=== PATIENT | male | born 1970 | race Caucasian/White ===

== ENCOUNTER → 2016-11-28 | Outpatient (CLI) | payer OTHER ==
--- NOTE | 2016-11-29 02:14 | REP ---
Clinical: Jaw pain. Technique: PA, Turcios and Tejinder views of the skull. Findings: The osseous structures appear intact and normal. The sinuses are clear and without obvious mucoperiosteal changes or fluid levels. The surrounding soft tissues are grossly unremarkable. Impression: Normal visualized skull radiographs. Signed by Reece Campbell MD 11/29/2016 02:05 A
== END ==
LOC: M WUC 13:22
PROVIDERS: ATTEND Physician Assistant
DX: R68.84 Jaw pain (principal)

== ENCOUNTER 2019-11-11 11:02 | Inpatient (IN) | payer OTHER ==
[~2019-11-11] VITALS: Ht 175.3 cm; Wt 63.6 kg
[2019-11-11] MEDS ORDERED: CAFF200T PO (11:14)
[2019-11-11] MEDS ORDERED: MULTCAP PO (11:14)
[2019-11-11] MEDS ORDERED: NS 1,000 ML IV ONE (11:30)
[2019-11-11] MEDS: HYDROMORPHONE HCL 0.5 MG/ 0.5 ML SYRINGE (J1170 PER 1) IV PRN ×2 (11:50→13:16)
[2019-11-11 11:53] LABS: BASO # 0.1 10^3/uL (0.0-0.2); BASO % 0.9 % (0.0-1.0); EOS # 0.3 10^3/uL (0.0-0.5); EOS % 2.1 % (0.0-3.0); HEMATOCRIT 44.4 % (42.0-52.0); HEMOGLOBIN 15.4 g/dl (13.5-17.5); LYMPH # 1.7 10^3/uL (1.5-5.0); LYMPH % 12.7 % (24.0-44.0); MEAN CORPUSCULAR HGB CONC 34.7 g/dl (32.0-36.5); MEAN CORPUSCULAR VOLUME 89.3 fl (80.0-96.0); MONO # 0.9 10^3/uL (0.0-0.8); MONO % 6.7 % (0.0-5.0); NEUTROPHILS # 10.6 10^3/uL (1.5-8.5); NEUTROPHILS % 77.2 % (36.0-66.0); PLATELET COUNT, AUTOMATED 429 10^3/uL (150-450); RED BLOOD COUNT 4.97 10^6/uL (4.30-6.10); WHITE BLOOD COUNT 13.7 10^3/uL (4.0-10.0)
--- NOTE | 2019-11-11 11:57 | REP ---
Chest, single AP view with the patient supine: There are no comparisons. The lung purdy are hyperinflated. There are no infiltrates, pleural effusions, masses or nodules. Cardiac size is normal. The marvin, mediastinum, skeletal structures are unremarkable. Impression: Hyperinflation, otherwise negative supine AP chest. Electronically Signed by Ivan Muñoz MD 11/11/2019 11:48 A
--- NOTE | 2019-11-11 11:58 | REP ---
Right femur: A six views. History: Trauma. Findings: Multiple views of the right femur demonstrate a overriding obliquely oriented proximal femoral diaphyseal fracture. There is anterior override measuring approximately 12 cm. There is some clothing artifact. No distal femoral fracture is seen. No femoral neck fracture is observed. Impression: Proximal femoral diaphyseal fracture with significant anterior overriding. Electronically Signed by Corey Owen MD 11/11/2019 11:49 A
[2019-11-11 12:13] LABS: INR 1.09; PROTHROMBIN TIME 13.8 SECONDS (11.8-14.0)
[2019-11-11 12:14] LABS: PARTIAL THROMBOPLASTIN TIME 28.4 SECONDS (25.0-38.4)
[2019-11-11 12:24] LABS: ALBUMIN 3.7 GM/DL (3.2-5.2); ALT/SGPT 23 U/L (12-78); BILIRUBIN,DIRECT 0.2 MG/DL (0.0-0.2); BILIRUBIN,TOTAL 0.9 MG/DL (0.2-1.0); BLOOD UREA NITROGEN 21 MG/DL (7-18); CALCIUM LEVEL 8.9 MG/DL (8.5-10.1); CARBON DIOXIDE LEVEL 26 MEQ/L (21-32); CHLORIDE LEVEL 111 MEQ/L (98-107); CK-MB VALUE MASS 2.5 NG/ML (<3.6); CPK CREATINE PHOSPHOKINASE 125 U/L (39-308); CREATININE FOR GFR 0.82 MG/DL (0.70-1.30); GLOMERULAR FILTRATION RATE > 60.0 (>56); GLUCOSE, FASTING 116 MG/DL (70-100); LIPASE 101 U/L (73-393); POTASSIUM SERUM 3.8 MEQ/L (3.5-5.1); SODIUM LEVEL 141 MEQ/L (136-145); THYROID STIMULATING HORMONE 0.822 uIU/ML (0.358-3.740); TOTAL PROTEIN 7.1 GM/DL (6.4-8.2); TROPONIN I < 0.02 NG/ML (< 0.10)
--- NOTE | 2019-11-11 12:38 | HPEPDOC ---
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 Denies any past medical history. Denies any medical complaints. Patient states he has never experienced shortness of breath or chest pain. He is able to climb at least five flights of stairs without shortness of breath or chest pain, his limiting factor only being his acrophobia. He is a smoker, 1/2 ppd x 30 years. PAST MEDICAL HISTORY: Denies PAST SURGICAL HISTORY: Denies ALLERGIES: Please see below. REVIEW OF SYSTEMS: As per HPI. HOME MEDICATIONS: Please see below. PHYSICAL EXAMINATION: VITAL SIGNS: See below General : NAD, lying comfortably in bed HEENT: NC/AT, poor dentition Lungs: CTA B/L Heart: +S1S2, RRR Abd: soft, NT, +BS Ext: +pedal pulses LABORATORY DATA: See below. MICROBIOLOGY: Please see below. ASSESSMENT: 49 yo male for right hip fx after mechanical fall, denies any past medical history. #right hip fx - NPO/bedrest/IVF - ortho c/s pending - Patient is easily able to attain >4 METS of activity without any chest pain or shortness of breath. No acute findings on chest x-ray or ECG. He scores 0 points using the Revised Cardiac Risk Index for Pre-operative risk, as such is Class 1 Risk, with 3.9% 30-day risk of , TN, or cardiac arrest. #nicotine abuse - counselling provided at bedside, cessation assistance offered but refused; he feels this may be an opportunity for him to quit Dispo: Patient is medically optimized for planned orthopedic surgical intervention. Vital Signs Vital Signs Date Time Temp Pulse Resp B/P (MAP) Pulse Ox O2 Delivery O2 Flow Rate FiO2 11/11/19 12:19 18 11/11/19 11:18 98.1 82 131/79 (96) 99 Room Air Laboratory Data Labs 24H Laboratory Tests 2 11/11/19 11:41: Immature Granulocyte % (Auto) 0.4, Neutrophils (%) (Auto) 77.2H, Lymphocytes (%) (Auto) 12.7L, Monocytes (%) (Auto) 6.7H, Eosinophils (%) (Auto) 2.1, Basophils (%) (Auto) 0.9, Neutrophils # (Auto) 10.6H, Lymphocytes # (Auto) 1.7, Monocytes # (Auto) 0.9H, Eosinophils # (Auto) 0.3, Basophils # (Auto) 0.1, Nucleated Red Blood Cells % (auto) 0.0, Prothrombin Time 13.8, Prothromb Time International Ratio 1.09, Activated Partial Thromboplast Time 28.4, Anion Gap 4L, Glomerular Filtration Rate > 60.0, Calcium Level 8.9, Total Bilirubin 0.9, Direct Bilirubin 0.2, Aspartate Amino Transf (AST/SGOT) 15, Alanine Aminotransferase (ALT/SGPT) 23, Alkaline Phosphatase 88, Total Creatine Kinase 125, Creatine Kinase MB 2.5, Creatine Kinase MB Relative Index 2.00, Troponin I < 0.02, Total Protein 7.1, Albumin 3.7, Albumin/Globulin Ratio 1.09, Lipase 101, Thyroid Stimulating Hormone (TSH) 0.822 CBC/BMP Laboratory Tests 11/11/19 11:41 Home Medications Scheduled Caffeine (Caffeine) 200 Mg Tablet, 200 MG PO DAILY Multivitamin (Multivitamins) 1 Each Capsule, 1 CAP PO DAILY Scheduled PRN Albuterol Sulfate (Proair Hfa) 8.5 Gm Hfa.aer.ad, 2 PUFF INH QID PRN for SHORTNESS OF BREATH Tetrahydroz/Peg 400/Hyprom/Gly (Visine Max Redness Relief Drop) 15 Ml Drops, 1 DROP OU Q4H PRN for REDNESS/IRRITATION Allergies Coded Allergies: naproxen (Verified Adverse Reaction, Mild, UPSET STOMACH, 11/11/19) A-FIB/CHADSVASC A-FIB History Current/History of A-Fib/PAF?: ASTRID Dawson MD Nov 11, 2019 12:37
[2019-11-11] MEDS ORDERED: PROAAER10 INH (12:52)
[2019-11-11] MEDS ORDERED: VISISOL OU (12:52)
--- NOTE | 2019-11-11 13:02 | REP ---
AP pelvis: There is a subtrochanteric fracture of the femur . There is no dislocation. No pelvic fractures are identified. Mineralization is normal. The left hip is unremarkable. Impression: Subtrochanteric fracture of the right femur. Electronically Signed by Ivan Muñoz MD 11/11/2019 12:53 P
--- NOTE | 2019-11-11 13:20 | REP ---
RIGHT KNEE, TWO VIEWS: Two limited views of right knee performed. Only two views are obtained due to limited patient mobility. I see no evidence of acute fracture, dislocation, or intrinsic bone disease. Electronically Signed by Ivan Boyle MD 11/11/2019 04:00 P
[2019-11-11] MEDS ORDERED: ceFAZolin SOD 2 GM in IV 1 EA IV ONE (14:00)
[2019-11-11] MEDS ORDERED: MORPHINE 4 MG/ML 1ML VIAL/SYRINGE (J2270) IV ONE (15:00)
--- NOTE | 2019-11-11 15:32 | CR ---
DATE OF CONSULTATION: 11/11/2019 CHIEF COMPLAINT: Right leg pain. HISTORY: He presents today with right leg pain. Says he was washing his car in his sister's driveway when he had a slip and fall on ice and immediately appreciated 10/10 pain and inability to ambulate. The pain was made worse with range of motion or movement, alleviated only with immobilization and pain medication. He denies any pain elsewhere, any fever, chills, nausea or vomiting. A complete 10-system review was conducted. Pertinent positives and negatives in the history of present illness (HPI). All other systems negative. Past medical history of asthma. No current medications. Has a rescue inhaler, which he has not needed in years, NO KNOWN DRUG ALLERGIES. No past surgical history. Patient denies smoking. PHYSICAL EXAM: Patient is awake, alert, and oriented, well dressed, appropriate affect. Breathing unlabored on room air. Normocephalic, atraumatic. Bilateral upper extremity: No tenderness to palpation. Full active range of motion of the fingers, wrists, and elbows without any pain or discomfort. Skin is intact to light touch. Radial pulse 2+, regular rate. Sensation intact to light touch, superficial sensory branches of the radial nerve, median nerve, and ulnar nerve. Positive anterior interosseous nerve (AIN), and posterior interosseous nerve (PIN), and ulnar motor nerve functions. Left lower extremity: No tenderness to palpation. Negative log roll. Skin is intact. Posterior tibial pulse 2+, regular rate. Positive extensor hallucis longus (EHL), flexor hallucis longus (FHL), tibialis, gastroc motor function. Sensation intact to light touch in superficial, peroneal, deep peroneal, sural, saphenous, and tibial distributions. Right lower extremity: Deformity and swelling about the right thigh. Skin is intact. Posterior tibial pulse 2+, regular rate. Generalized tenderness to palpation throughout the thigh. Sensation intact to light touch in superficial, peroneal, deep peroneal, sural, saphenous, and tibial distributions. Imaging reviewed of pelvis, femur, and knee demonstrating oblique proximal third shaft fracture. I discussed with the patient that this is an unstable fracture and requires operative intervention. We discussed the risks and benefits of this including, but not limited to, infection, damage to surrounding structures, incomplete relief, malunion, nonunion. Patient wished to proceed. He is admitted under the hospitalist service. He is currently nothing by mouth. The last time he ate or drank; eat last night, drank this morning at 8 a.m. He is bedrest currently. Patient expressed understanding and consented to surgery. We will work on getting the surgery done today. GLORIA
[2019-11-11] MEDS ORDERED: propofoL 200 MG/20 ML VIAL As Ordered ONE (16:14)
[2019-11-11] MEDS ORDERED: ROCURONIUM BROMIDE 50 MG/5 ML VIAL As Ordered ONE (16:14)
[2019-11-11] MEDS ORDERED: LIDOCAINE 2% INJ 100 MG/5 ML SDV (FOR ANES.) As Ordered ONE (16:14)
[2019-11-11] MEDS ORDERED: MIDAZOLAM INJ 2 MG/2 ML VIAL (J2250) As Ordered ONE (16:14)
[2019-11-11] MEDS ORDERED: fentaNYL 250 MCG/5 ML INJECTION (J3010) As Ordered ONE (16:14)
[2019-11-11] MEDS ORDERED: ceFAZolin 2 GM/D5W 50 ML IV BAG (J0690 PER 500MG) As Ordered ONE (16:26)
[2019-11-11] MEDS ORDERED: ONDANSETRON 4MG/2ML VIAL (J2405) As Ordered ONE (16:57)
[2019-11-11] MEDS ORDERED: METOCLOPRAMIDE INJ 10MG/2ML VIAL (J2765) As Ordered ONE (16:57)
[2019-11-11] MEDS ORDERED: GLYCOPYRROLATE INJ 0.2 MG/ML 2 ML VIAL As Ordered ONE (17:02)
[2019-11-11] MEDS ORDERED: NEOSTIGMINE 10 MG/10 ML VIAL (J2710) As Ordered ONE (17:02)
[2019-11-11] MEDS ORDERED: HYDROmorphone HCL 2 MG/ML 1ML VIAL (J1170) As Ordered ONE (17:07)
[2019-11-11] MEDS ORDERED: ACETAMINOPHEN 1000MG 100ML IV BTL (OFIRMEV) (J0131 PER 10MG) As Ordered ONE (17:09)
[2019-11-11] MEDS ORDERED: LR 1,000 ML IV SCH (18:45)
[2019-11-11] MEDS ORDERED: PERCOCET 5MG/325MG TAB PO PRN (18:45)
[2019-11-11] MEDS ORDERED: fentaNYL 100 MCG/2 ML INJECTION (J3010) IV PRN (18:45)
[2019-11-11] MEDS ORDERED: METOCLOPRAMIDE INJ 10MG/2ML VIAL (J2765) IV PRN (18:45)
[2019-11-11] MEDS ORDERED: ONDANSETRON 4MG/2ML VIAL (J2405) IV PRN (18:45)
[2019-11-11] MEDS ORDERED: ONDANSETRON 4MG/2ML VIAL (J2405) IM PRN (19:00)
[2019-11-11] MEDS ORDERED: NS 1,000 ML IV SCH (19:00)
[2019-11-11] MEDS ORDERED: oxyCODONE 5MG TAB PO PRN (19:00)
[2019-11-11] MEDS ORDERED: ACETAMINOPHEN TAB 650MG DOSE (2X325MG) PO PRN (19:00)
[2019-11-11] MEDS ORDERED: FLEET ENEMA PR PRN (19:00)
--- NOTE | 2019-11-11 19:10 | REP ---
Right femur: Eight views. History: Intraoperative imaging. Comparison right femur radiographs are from earlier on this date. Findings: Eight views of the right femur document intramedullary chas fixation of a subtrochanteric femoral diaphyseal fracture anatomically aligned. 2 minutes 14 seconds of fluoroscopy time is reported. Electronically Signed by Corey Owen MD 11/11/2019 07:16 P
--- NOTE | 2019-11-11 19:19 | RO ---
DATE OF PROCEDURE: 11/11/2019 PREPROCEDURE DIAGNOSIS: Right femoral shaft fracture with extension into intertrochanteric region. POSTPROCEDURE DIAGNOSIS: Right femoral shaft fracture with extension into intertrochanteric region. PROCEDURE: Right intramedullary nailing of femoral shaft fracture. SURGEON: Parker Rebollar MD LIGHT BULB ASSEMBLER: None. ANESTHESIA: General. PREOPERATIVE ANTIBIOTICS: 2 grams of Ancef. COMPLICATIONS: None. BLOOD LOSS: 200 mL. INDICATIONS: This is a 49-year-old male who suffered a slip and fall and suffered an unstable femoral shaft injury. We discussed the need for operative intervention in order to increase his ambulation and pain control. We discussed the risks, including, but not limited to infection, damage to surrounding structures, incomplete relief, malunion, nonunion, patient wished to proceed. DESCRIPTION OF PROCEDURE: The patient was brought back to the operating room (OR) in a supine position, underwent general anesthesia, and then was placed on the fracture table. We then had a time-out confirming site, side, and surgery, applied traction. We were able to get reasonable reduction at this point. We then prepped and draped the right leg in the usual fashion. We localized the greater trochanter along with the proximal and distal extent of the fracture. We then made a longitudinal incision mid thigh and in line with the fracture, controlled superficial bleeding and entered the iliotibial (IT) band in line with the fibers and then did a subvastus approach to the proximal femur at where the fracture plane was. We then used a combination of direct and indirect means to reduce the fracture using two large lobster claws, at which point we passed two cerclage wires around the fracture to maintain our reduction. These were cinched down and locked into place, confirmed on AP and lateral that we had adequate reduction. We then made our proximal incision in line with the greater trochanter. I obtained our start point on the AP and lateral. We then used the entry reamer and passed a guidewire down to the knee, measured a 400 mm nail, at which point we sequentially reamed up to a 12-1/2 and inserted a 125-degree TFN 11 mm nail. We then removed the guidewire and inserted the K-wire for the helical blade. Once we confirmed center-center position on both AP and lateral, we measured a 95 helical blade, drilled, and then inserted the helical blade and locked it fully into place. This was confirmed on both AP and lateral. We then turned our attention distally and used perfect barrow technique to do two interlocking screws distally. Once this was complete, we confirmed on AP and lateral both our hardware and our fracture fixation and reduction, and we were happy with both. We irrigated the wounds thoroughly. We closed the IT band with #0 Vicryl, subcutaneous tissue with #2-0 Vicryl and skin christianne for all wounds, and then placed gauze and Tegaderm over top. The patient was then awakened and taken to the post-anesthesia care unit (PACU) in stable condition. POSTOPERATIVE PLAN: The patient will be weightbearing as tolerated, get Surgical Care Improvement Project (SCIP) antibiotic prophylaxis along with deep vein thrombosis (DVT) prophylaxis for approximately 6 weeks. He will be discharged once his pain and ambulation is under control. Will see him at 2 weeks for a repeat clinical check at that time.
[2019-11-11 19:44] VITALS: BP 108/74
[2019-11-11 20:30] VITALS: BP 105/72
[2019-11-11 21:15] VITALS: BP 103/67
[2019-11-11] MEDS: oxyCODONE 5MG TAB PO PRN (21:29)
--- NOTE | 2019-11-11 21:35 | ECGEPIP ---
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
[2019-11-11 22:15] VITALS: BP 106/76
[2019-11-12] MEDS: ceFAZolin SOD 1 GM in D5W MINI-BAG PLUS 50 ML IV SCH ×3 (01:08→16:32)
[2019-11-12] MEDS: MORPHINE 2 MG/ML 1ML VIAL (J2270) IV PRN ×2 (01:08→03:09)
[2019-11-12] MEDS: oxyCODONE 5MG TAB PO PRN ×3 (02:02→12:54)
[2019-11-12 05:57] VITALS: BP 110/65
[2019-11-12 06:44] LABS: BASO # 0.1 10^3/uL (0.0-0.2); BASO % 0.8 % (0.0-1.0); EOS # 0.1 10^3/uL (0.0-0.5); EOS % 1.2 % (0.0-3.0); HEMATOCRIT 33.9 % (42.0-52.0); LYMPH # 1.6 10^3/uL (1.5-5.0); LYMPH % 17.6 % (24.0-44.0); MEAN CORPUSCULAR HGB CONC 34.5 g/dl (32.0-36.5); MEAN CORPUSCULAR VOLUME 89.9 fl (80.0-96.0); MONO # 1.4 10^3/uL (0.0-0.8); MONO % 15.3 % (0.0-5.0); NEUTROPHILS % 64.7 % (36.0-66.0); RED BLOOD COUNT 3.77 10^6/uL (4.30-6.10); WHITE BLOOD COUNT 9.3 10^3/uL (4.0-10.0)
[2019-11-12 06:46] LABS: HEMOGLOBIN 11.7 g/dl (13.5-17.5); PLATELET COUNT, AUTOMATED 288 10^3/uL (150-450)
[2019-11-12 07:01] LABS: ALBUMIN 2.9 GM/DL (3.2-5.2); ALT/SGPT 20 U/L (12-78); BILIRUBIN,TOTAL 2.1 MG/DL (0.2-1.0); BLOOD UREA NITROGEN 17 MG/DL (7-18); CALCIUM LEVEL 7.9 MG/DL (8.5-10.1); CARBON DIOXIDE LEVEL 23 MEQ/L (21-32); CHLORIDE LEVEL 112 MEQ/L (98-107); CHOLESTEROL LEVEL 106 MG/DL (<200); CHOLESTEROL RISK RATIO 3.655 (<5); CREATININE FOR GFR 0.81 MG/DL (0.70-1.30); GLOMERULAR FILTRATION RATE > 60.0 (>56); GLUCOSE, FASTING 112 MG/DL (70-100); HDL CHOLESTEROL 29 MG/DL (>40); LDL CHOLESTEROL 61 MG/DL (<100); NON-HDL-C 77 MG/DL; POTASSIUM SERUM 4.4 MEQ/L (3.5-5.1); SODIUM LEVEL 141 MEQ/L (136-145); TOTAL PROTEIN 5.6 GM/DL (6.4-8.2); TRIGLYCERIDES LEVEL 81 MG/DL (<150)
[2019-11-12 08:03] LABS: HEMOGLOBIN A1c 5.8 %
[2019-11-12] MEDS: CYCLOBENZAPRINE 10 MG TAB PO SCH ×3 (08:38→20:29)
[2019-11-12] MEDS: MORPHINE 15 MG SA TAB PO SCH ×2 (08:38→20:29)
[2019-11-12] MEDS: MOM 30ML SUSPENSION UDC PO SCH (08:38)
[2019-11-12] MEDS: MIRALAX *UNIT DOSE* 17GM PACKET PO SCH (08:38)
[2019-11-12] MEDS ORDERED: ENOXAPARIN 40 MG/0.4 ML SYRINGE (J1650) SC SCH (09:00)
[2019-11-12 10:00] VITALS: BP 108/65
--- NOTE | 2019-11-12 11:25 | IPNPDOC ---
Date Seen The patient was seen on 11/12/19. Progress Note SUBJECTIVE: Patient was seen and examined this morning. He states he has a large amount of pain in his R leg and that he has a "sore throat" that is making eating difficult. Otherwise no events overnight and he denies chest pain, shortness of breath, fevers, chills, nausea and vomiting. OBJECTIVE PHYSICAL EXAMINATION: VITAL SIGNS: Please see below. GENERAL: Pleasant 49 year old male lying in bed in no acute distress. HEENT: Atraumatic, normocephalic, moist mucus membranes. CARDIOVASCULAR: Normal S1, S2 regular rate and rhythm with no murmurs, gallops or rubs RESPIRATORY: Clear to auscultation bilaterally with no wheezes, rhonchi or rales ABDOMINAL: Bowel sounds present in all 4 quadrants, abdomen soft and nontender EXTREMITIES: Surgical site on R leg shows no erythema or discharge. R foot is cold to touch. NEUROLOGICAL: AOx3, no gross focal deficits PSYCHOLOGICAL: Appropriate. LABORATORY DATA, MICROBIOLOGY: Please see below. IMAGING STUDIES: No new imaging. DVT prophylaxis: Xarelto 10 mg PO daily. ASSESSMENT AND PLAN: This is a 49 year old male with a R hip fracture after a mechanical fall s/p surgery 1 day. PROBLEMS: 1. R hip fracture -Ortho consulted and surgery performed yesterday. -Postoperative plan per ortho: weightbearing as tolerated, antibiotic prophylaxis and DVT prophylaxis for 6 weeks, discharge once pain and ambulation are under control. -cefazolin 1 gm Q8H -continue pain meds 2. Nicotine Abuse -counseled bedside, patient refused assistance. DISPOSITION: Pending pain and ambulation control. Attending: Patient seen and examined independently. Agree with resident's note. VS, I&O, 24H, Fishbone Vital Signs/I&O Vital Signs Date Time Temp Pulse Resp B/P (MAP) Pulse Ox O2 Delivery O2 Flow Rate FiO2 11/12/19 08:38 18 Room Air 11/12/19 05:57 99.3 98 110/65 (80) 98 I&O- Last 24 Hours up to 6 AM 11/12/19 06:00 Intake Total 3190 ml Output Total 475 ml Balance 2715 ml Laboratory Data 24H LABS Laboratory Tests 2 11/11/19 11:41: Immature Granulocyte % (Auto) 0.4, Neutrophils (%) (Auto) 77.2H, Lymphocytes (%) (Auto) 12.7L, Monocytes (%) (Auto) 6.7H, Eosinophils (%) (Auto) 2.1, Basophils (%) (Auto) 0.9, Neutrophils # (Auto) 10.6H, Lymphocytes # (Auto) 1.7, Monocytes # (Auto) 0.9H, Eosinophils # (Auto) 0.3, Basophils # (Auto) 0.1, Nucleated Red Blood Cells % (auto) 0.0, Prothrombin Time 13.8, Prothromb Time International Ratio 1.09, Activated Partial Thromboplast Time 28.4, Anion Gap 4L, Glomerular Filtration Rate > 60.0, Calcium Level 8.9, Total Bilirubin 0.9, Direct Bilirubin 0.2, Aspartate Amino Transf (AST/SGOT) 15, Alanine Aminotransferase (ALT/SGPT) 23, Alkaline Phosphatase 88, Total Creatine Kinase 125, Creatine Kinase MB 2.5, Creatine Kinase MB Relative Index 2.00, Troponin I < 0.02, Total Protein 7.1, Albumin 3.7, Albumin/Globulin Ratio 1.09, Lipase 101, Thyroid Stimulating Hormone (TSH) 0.822 11/12/19 06:26: Immature Granulocyte % (Auto) 0.4, Neutrophils (%) (Auto) 64.7, Lymphocytes (%) (Auto) 17.6L, Monocytes (%) (Auto) 15.3H, Eosinophils (%) (Auto) 1.2, Basophils (%) (Auto) 0.8, Neutrophils # (Auto) 6.0, Lymphocytes # (Auto) 1.6, Monocytes # (Auto) 1.4H, Eosinophils # (Auto) 0.1, Basophils # (Auto) 0.1, Nucleated Red Blood Cells % (auto) 0.0, Anion Gap 6L, Glomerular Filtration Rate > 60.0, Calcium Level 7.9L, Total Bilirubin 2.1#H, Aspartate Amino Transf (AST/SGOT) 36, Alanine Aminotransferase (ALT/SGPT) 20, Alkaline Phosphatase 73, Total Protein 5.6#L, Albumin 2.9#L, Albumin/Globulin Ratio 1.07, Estimated Mean Plasma Glucose 120H, Hemoglobin A1c 5.8, Triglycerides Level 81, Total Cholesterol 106, LDL Cholesterol 61, Non-HDL Cholesterol (LDL + VLDL) 77, Total HDL Cholesterol 29L, Cholesterol/HDL Ratio 3.655 CBC/BMP Laboratory Tests 11/11/19 11:41 11/12/19 06:26 RITU PETERS OMS-3 Nov 12, 2019 11:24 ASTRID TELLES MD Nov 18, 2019 23:26
[2019-11-12] MEDS ORDERED: ONDANSETRON 4MG/2ML VIAL (J2405) IV PRN (12:45)
[2019-11-12 14:00] VITALS: BP 114/78
[2019-11-12 18:00] VITALS: BP 114/66
[2019-11-12] MEDS: RIVAROXABAN 10 MG TAB (XARELTO) PO SCH (18:29)
[2019-11-12 22:00] VITALS: BP 111/67
[2019-11-13 02:00] VITALS: BP 113/69
[2019-11-13 06:00] VITALS: BP 113/70
[2019-11-13 07:22] LABS: HEMATOCRIT 30.2 % (42.0-52.0); HEMOGLOBIN 10.4 g/dl (13.5-17.5); MEAN CORPUSCULAR HEMOGLOBIN 31.2 pg (27.0-33.0); MEAN CORPUSCULAR HGB CONC 34.4 g/dl (32.0-36.5); MEAN CORPUSCULAR VOLUME 90.7 fl (80.0-96.0); PLATELET COUNT, AUTOMATED 278 10^3/uL (150-450); RED BLOOD COUNT 3.33 10^6/uL (4.30-6.10); WHITE BLOOD COUNT 9.6 10^3/uL (4.0-10.0)
[2019-11-13 07:53] LABS: ALBUMIN 2.7 GM/DL (3.2-5.2); ALT/SGPT 19 U/L (12-78); BILIRUBIN,TOTAL 1.8 MG/DL (0.2-1.0); BLOOD UREA NITROGEN 13 MG/DL (7-18); CALCIUM LEVEL 8.4 MG/DL (8.5-10.1); CARBON DIOXIDE LEVEL 27 MEQ/L (21-32); CHLORIDE LEVEL 105 MEQ/L (98-107); CREATININE FOR GFR 0.67 MG/DL (0.70-1.30); GLOMERULAR FILTRATION RATE > 60.0 (>56); GLUCOSE, FASTING 108 MG/DL (70-100); POTASSIUM SERUM 3.8 MEQ/L (3.5-5.1); SODIUM LEVEL 135 MEQ/L (136-145); TOTAL PROTEIN 5.8 GM/DL (6.4-8.2)
[2019-11-13] MEDS: CYCLOBENZAPRINE 10 MG TAB PO SCH ×3 (08:38→20:04)
[2019-11-13] MEDS: MORPHINE 15 MG SA TAB PO SCH ×2 (08:39→20:05)
[2019-11-13] MEDS: MIRALAX *UNIT DOSE* 17GM PACKET PO SCH (08:39)
[2019-11-13] MEDS: MOM 30ML SUSPENSION UDC PO SCH (08:39)
[2019-11-13 14:00] VITALS: BP 109/69
--- NOTE | 2019-11-13 14:32 | IPNPDOC ---
Subjective Date Seen The patient was seen on 11/13/19. Subjective Chief Complaint/HPI Doing fine c/o cough but no worse than before surgery. Pain control. Objective Physical Examination General Exam: Positive: Alert, No Acute Distress Eye Exam: Positive: PERRLA, Conjunctiva & lids normal; Negative: Sclera icteric ENT Exam: Positive: Atraumatic Neck Exam: Positive: Supple; Negative: JVD, thyromegaly Chest Exam: Positive: Clear to auscultation, Normal air movement Heart Exam: Positive: Rate Normal, Regular Rhythm, Normal S1, Normal S2; Negative: Murmurs, Rubs Telemetry: Positive: No significant arrhythmia Abdomen Exam: Positive: Normal bowel sounds, Soft; Negative: Tenderness, Hepatospenomegaly Extremity Exam: Positive: Normal pulses; Negative: Clubbing, Cyanosis, Edema Skin Exam: Positive: Nl turgor and temperature; Negative: Rash, Breakdown Neuro Exam: Positive: Normal Speech Psych Exam: Positive: Mental status NL, Mood NL, Oriented x 3 Assessment /Plan Assessment # Right hip fracture # post-op ncnc anemia - POD # 2 s/p nailing - PT/OT awaiting eval for possible placement vs home - xarelto - monitor cbc # Nicotine Abuse -counseled bedside, patient refused assistance. Plan/VTE VTE Prophylaxis Ordered?: Yes VTE Exclusion Mechanical Proph: N/A:VTE Prophy Ordered VTE Exclusion Pharmacological: N/A:VTE Prophy Ordered (xarelto) VS, I&O, 24H, Fishbone Vital Signs/I&O Vital Signs Date Time Temp Pulse Resp B/P (MAP) Pulse Ox O2 Delivery O2 Flow Rate FiO2 11/13/19 11:30 18 Room Air 11/13/19 06:00 99.0 86 113/70 (84) 99 I&O- Last 24 Hours up to 6 AM 11/13/19 06:00 Intake Total 2150 ml Output Total 1230 ml Balance 920 ml Laboratory Data 24H LABS Laboratory Tests 2 11/13/19 07:01: Nucleated Red Blood Cells % (auto) 0.0, Anion Gap 3L, Glomerular Filtration Rate > 60.0, Calcium Level 8.4L, Total Bilirubin 1.8H, Aspartate Amino Transf (AST/SGOT) 35, Alanine Aminotransferase (ALT/SGPT) 19, Alkaline Phosphatase 67, Total Protein 5.8L, Albumin 2.7L, Albumin/Globulin Ratio 0.87L CBC/BMP Laboratory Tests 11/13/19 07:01 ALTA GIBBS MD Nov 13, 2019 14:24
[2019-11-13] MEDS: RIVAROXABAN 10 MG TAB (XARELTO) PO SCH (16:56)
[2019-11-13 21:49] VITALS: BP 102/65
[2019-11-14 06:30] VITALS: BP 105/66
[2019-11-14 06:54] LABS: HEMATOCRIT 27.6 % (42.0-52.0); HEMOGLOBIN 9.4 g/dl (13.5-17.5); MEAN CORPUSCULAR HEMOGLOBIN 30.9 pg (27.0-33.0); MEAN CORPUSCULAR HGB CONC 34.1 g/dl (32.0-36.5); MEAN CORPUSCULAR VOLUME 90.8 fl (80.0-96.0); PLATELET COUNT, AUTOMATED 276 10^3/uL (150-450); RED BLOOD COUNT 3.04 10^6/uL (4.30-6.10); WHITE BLOOD COUNT 7.9 10^3/uL (4.0-10.0)
[2019-11-14] MEDS: CYCLOBENZAPRINE 10 MG TAB PO SCH ×3 (08:52→21:25)
[2019-11-14] MEDS: MOM 30ML SUSPENSION UDC PO SCH (08:52)
[2019-11-14] MEDS: MORPHINE 15 MG SA TAB PO SCH ×2 (08:53→21:26)
[2019-11-14] MEDS: MIRALAX *UNIT DOSE* 17GM PACKET PO SCH (08:54)
[2019-11-14 14:00] VITALS: BP 104/66
--- NOTE | 2019-11-14 15:51 | IPNPDOC ---
Subjective Date Seen The patient was seen on 11/14/19. Subjective Chief Complaint/HPI C/o pain while walking in [place]. Objective Physical Examination General Exam: Positive: Alert, No Acute Distress Eye Exam: Positive: PERRLA; Negative: Sclera icteric ENT Exam: Positive: Atraumatic Neck Exam: Positive: Supple; Negative: JVD, thyromegaly Chest Exam: Positive: Clear to auscultation Heart Exam: Positive: Rate Normal, Regular Rhythm, Normal S1, Normal S2; Negative: Murmurs, Rubs Abdomen Exam: Positive: Normal bowel sounds, Soft; Negative: Tenderness, Hepatospenomegaly Extremity Exam: Positive: Normal pulses; Negative: Clubbing, Cyanosis, Edema Skin Exam: Positive: Nl turgor and temperature; Negative: Rash, Breakdown Neuro Exam: Positive: Normal Speech Psych Exam: Positive: Mental status NL, Oriented x 3 Assessment /Plan Assessment # Right hip fracture # post-op ncnc anemia - POD # 3 s/p nailing - PT/OT awaiting eval for possible placement vs home - Xarelto - monitor cbc - no TX indicated at this time # Nicotine Abuse -counseled bedside, patient refused assistance. Plan/VTE VTE Prophylaxis Ordered?: Yes VTE Exclusion Mechanical Proph: N/A:VTE Prophy Ordered VTE Exclusion Pharmacological: N/A:VTE Prophy Ordered (xarelto) VS, I&O, 24H, Fishbone Vital Signs/I&O Vital Signs Date Time Temp Pulse Resp B/P (MAP) Pulse Ox O2 Delivery O2 Flow Rate FiO2 11/14/19 08:53 18 11/14/19 06:30 98.4 98 105/66 (79) 99 Room Air I&O- Last 24 Hours up to 6 AM 11/14/19 06:00 Intake Total 1180 ml Output Total 0 ml Balance 1180 ml Laboratory Data 24H LABS Laboratory Tests 2 11/14/19 06:36: Nucleated Red Blood Cells % (auto) 0.0 CBC/BMP Laboratory Tests 11/14/19 06:36 ALTA GIBBS MD Nov 14, 2019 15:51
[2019-11-14] MEDS: RIVAROXABAN 10 MG TAB (XARELTO) PO SCH (16:52)
[2019-11-14 22:00] VITALS: BP 102/66
[2019-11-15 06:00] VITALS: BP 101/66
[2019-11-15] MEDS ORDERED: XARE10TA PO (06:40)
[2019-11-15] MEDS ORDERED: OXYC-517 PO (06:40)
[2019-11-15] MEDS ORDERED: CYCL10TA PO (06:40)
[2019-11-15] MEDS: CYCLOBENZAPRINE 10 MG TAB PO SCH ×3 (08:05→20:48)
[2019-11-15] MEDS: MORPHINE 15 MG SA TAB PO SCH ×2 (08:06→20:49)
[2019-11-15] MEDS: MOM 30ML SUSPENSION UDC PO SCH (08:06)
[2019-11-15] MEDS: MIRALAX *UNIT DOSE* 17GM PACKET PO SCH (08:06)
--- NOTE | 2019-11-15 11:06 | IPNPDOC ---
Subjective Date Seen The patient was seen on 11/15/19. Subjective Chief Complaint/HPI Feels well. No active problems, getting around better. Objective Physical Examination General Exam: Positive: Alert Eye Exam: Positive: PERRLA, EOMI; Negative: Sclera icteric ENT Exam: Positive: Atraumatic Neck Exam: Positive: Supple; Negative: JVD, thyromegaly Chest Exam: Positive: Clear to auscultation Heart Exam: Positive: Regular Rhythm, Normal S1, Normal S2; Negative: Murmurs, Rubs Abdomen Exam: Positive: Normal bowel sounds, Soft; Negative: Tenderness, Hepatospenomegaly Extremity Exam: Positive: Normal pulses; Negative: Clubbing, Cyanosis, Edema Skin Exam: Positive: Nl turgor and temperature; Negative: Rash, Breakdown Neuro Exam: Positive: Normal Speech Psych Exam: Positive: Mental status NL, Oriented x 3 Assessment /Plan Assessment # Right hip fracture # post-op ncnc anemia - s/p nailing - PT/OT awaiting eval for possible placement vs home - Xarelto - monitor cbc - no TX indicated at this time - home today with HH # Nicotine Abuse -counseled bedside, patient refused assistance. Plan/VTE VTE Prophylaxis Ordered?: Yes VTE Exclusion Mechanical Proph: N/A:VTE Prophy Ordered VTE Exclusion Pharmacological: N/A:VTE Prophy Ordered (xarelto) VS, I&O, 24H, Fishbone Vital Signs/I&O Vital Signs Date Time Temp Pulse Resp B/P (MAP) Pulse Ox O2 Delivery O2 Flow Rate FiO2 11/15/19 08:06 18 11/15/19 06:00 98.9 101 101/66 (78) 97 Room Air I&O- Last 24 Hours up to 6 AM 11/15/19 06:00 Intake Total 1690 ml Output Total 200 ml Balance 1490 ml ALTA GIBBS MD Nov 15, 2019 11:06
[2019-11-15 14:00] VITALS: BP 105/66
[2019-11-15] MEDS: RIVAROXABAN 10 MG TAB (XARELTO) PO SCH (16:42)
[2019-11-15 21:34] VITALS: BP 102/66
[2019-11-16 06:27] VITALS: BP 102/69
[2019-11-16] MEDS: MOM 30ML SUSPENSION UDC PO SCH (09:00)
[2019-11-16] MEDS: MIRALAX *UNIT DOSE* 17GM PACKET PO SCH (09:00)
[2019-11-16] MEDS: CYCLOBENZAPRINE 10 MG TAB PO SCH (09:30)
[2019-11-16] MEDS: MORPHINE 15 MG SA TAB PO SCH (09:30)
--- NOTE | 2019-11-16 09:58 | IPNPDOC ---
Subjective Date Seen The patient was seen on 11/16/19. Subjective Chief Complaint/HPI Stable Objective Physical Examination General Exam: Positive: Alert Eye Exam: Positive: PERRLA, EOMI; Negative: Sclera icteric ENT Exam: Positive: Atraumatic Neck Exam: Positive: Supple; Negative: JVD, thyromegaly Chest Exam: Positive: Clear to auscultation Heart Exam: Positive: Regular Rhythm, Normal S1, Normal S2; Negative: Murmurs, Rubs Abdomen Exam: Positive: Normal bowel sounds, Soft; Negative: Tenderness, Hepatospenomegaly Extremity Exam: Positive: Normal pulses; Negative: Clubbing, Cyanosis, Edema Skin Exam: Positive: Nl turgor and temperature; Negative: Rash, Breakdown Neuro Exam: Positive: Normal Speech Psych Exam: Positive: Mental status NL, Oriented x 3 Assessment /Plan Assessment # Right hip fracture # post-op ncnc anemia - s/p nailing - Xarelto - monitor cbc - home today with HH - f/u with PCP and ortho as outpatient # Nicotine Abuse -counseled bedside, patient refused assistance. Plan/VTE VTE Prophylaxis Ordered?: Yes VTE Exclusion Mechanical Proph: N/A:VTE Prophy Ordered VTE Exclusion Pharmacological: N/A:VTE Prophy Ordered (xarelto) VS, I&O, 24H, Fishbone Vital Signs/I&O Vital Signs Date Time Temp Pulse Resp B/P (MAP) Pulse Ox O2 Delivery O2 Flow Rate FiO2 11/16/19 09:30 18 Room Air 11/16/19 06:27 99.9 116 102/69 (80) 97 I&O- Last 24 Hours up to 6 AM 11/16/19 06:00 Intake Total 1840 ml Output Total 600 ml Balance 1240 ml ALTA GIBBS MD Nov 16, 2019 09:58
--- NOTE | 2019-11-18 12:20 | DSES ---
DATE OF ADMISSION: 11/11/2019 DATE OF DISCHARGE: 11/16/2019 DISCHARGE DIAGNOSES: 1. Status post mechanical fall with traumatic right hip fracture. 2. Status post intramedullary nailing of right hip fracture. 3. Postop normocytic, normochromic anemia. 4. Nicotine abuse. PROCEDURES PERFORMED DURING THIS HOSPITALIZATION: Right intertrochanteric medullary nailing. CONSULTANTS ON THE CASE: Orthopaedic service. DISPOSITION: Patient is discharged home with home health. DISCHARGE INSTRUCTIONS: Patient is instructed to follow with his primary care provider (PCP). He is to followup with orthopaedics as outline in the discharge paperwork. CONDITION ON DISCHARGE: Stable. DISCHARGE MEDICATIONS: - Flexeril 10 mg one tablet three times a day for 5 days - oxycodone 5 mg one to two tablets by mouth every 4 hours as needed for pain dispensed 30 tablets. - Xarelto 10 mg by mouth daily for 30 days - ProAir two puffs four times a day as needed for shortness of breath - Caffeine 200 mg daily - multivitamin one capsule daily - Visine eye drops one drop OU every 4 hours as needed for redness and irritation. White blood cell count 7.9, hemoglobin 9.4, hematocrit 27.6, platelet count 276. Sodium 135, potassium 3.8, chloride 105, bicarbonate 27, BUN 13, creatinine 0.67, glucose 108, calcium 8.4. Total bilirubin 1 .8, AST 35, ALT 19, albumin 2.7, TSH 0.82, lipase 102, cholesterol 106, LDL 61, Non-LDL 77, total HDL cholesterol 29. IMAGING STUDIES: X-ray of the femur showed a proximal femoral diaphyseal fracture with significant anterior overriding. HOSPITAL COURSE: Mr. Woodward is a 49-year-old male who is a smoker who presented to the hospital after suffering a fall on the ice and developing acute pain on his right side. He was diagnosed as having a right femoral shaft fracture with extension into the intertrochanteric region. He was admitted to the hospitalist service. He was subsequently cleared for surgery. He was taken to the operative theater by Dr. Rebollar and he underwent right intramedullary nailing of the femoral shaft fracture. His postoperative course was uncomplicated with the exception of his pain and mobility. It took him several days for him to improve in regards to these issues. He was evaluated for possible placement, however, his insurance declined him and he was subsequently cleared by physical therapy (PT) and occupational therapy (OT) to go home with home health. He was discharged home in stable condition. A total of 30 minutes spent completing all discharge paperwork.
== END 2019-11-16 13:00 | disposition home health service (06) | DRG 308 ==
LOC: EDBD 11:02 → M ED 11:02 → M ED INP 12:35 → ENRESERVTM 18:56 → ENRESERVDT 18:56 → M MS5PR 19:35
PROVIDERS: ADMIT Internal Medicine; ATTEND Internal Medicine
PROC: 0QS606Z Reposition Right Upper Femur with Intramedullary Internal Fixation Device, Open Approach (ICD-10-PCS; principal; 2019-11-11 15:00)
DX: S72.331A Displaced oblique fracture of shaft of right femur, initial encounter for closed fracture (principal); W00.0XXA Fall on same level due to ice and snow, initial encounter; F17.200 Nicotine dependence, unspecified, uncomplicated; D64.9 Anemia, unspecified; Y93.89 Activity, other specified; Y92.014 Private driveway to single-family (private) house as the place of occurrence of the external cause; Z88.6 Allergy status to analgesic agent; Y99.8 Other external cause status

== ENCOUNTER 2024-01-08 08:52 | Emergency (ER) | payer OTHER ==
[~2024-01-08] VITALS: Ht 175.3 cm; Wt 63.6 kg
[~2024-01-08 08:52] MED LIST: CAFF200T PO; CYCL-707 PO; MULTCAP PO; OXYC-517 PO; PROAAER10 INH; VISISOL OU; XARE10TA PO
[2024-01-08] MEDS: ACETAMINOPHEN 500 MG TAB PO ONE (10:11)
[2024-01-08] MEDS ORDERED: IBUP-1022 PO (12:17)
[2024-01-08 12:35] VITALS: BP 124/73; TEMP 98.9; O2SAT 99
== END 2024-01-08 12:40 | disposition home or self-care (01) ==
LOC: M ED 08:52
DX: S83.92XA Sprain of unspecified site of left knee, initial encounter (principal); S80.12XA Contusion of left lower leg, initial encounter; X50.1XXA Overexertion from prolonged static or awkward postures, initial encounter; Y92.9 Unspecified place or not applicable; Y93.9 Activity, unspecified; Y99.0 Civilian activity done for income or pay; J45.909 Unspecified asthma, uncomplicated; F17.200 Nicotine dependence, unspecified, uncomplicated; Z79.899 Other long term (current) drug therapy; Z88.6 Allergy status to analgesic agent

== ENCOUNTER 2025-05-31 09:51 | Emergency (ER) | payer OTHER ==
[~2025-05-31] VITALS: Ht 175.3 cm; Wt 53.4 kg
[~2025-05-31 09:51] MED LIST changes: +IBUP600T42 PO
[2025-05-31] MEDS: IPRATROPIUM 0.5 MG/ALBUTEROL 2.5 MG INH SOL UD 3 ML NEB ONE (11:17)
[2025-05-31 11:22] LABS: BASO # 0.1 10^3/uL (0.0-0.2); BASO % 1.0 % (0.0-1.0); EOS # 0.4 10^3/uL (0.0-0.5); EOS % 4.4 % (0.0-3.0); LYMPH # 1.8 10^3/uL (1.5-5.0); LYMPH % 18.9 % (24.0-44.0); MONO # 1.0 10^3/uL (0.0-0.8); MONO % 11.0 % (2.0-8.0); NEUTROPHILS # 6.1 10^3/uL (1.5-8.5); NEUTROPHILS % 64.4 % (36.0-66.0); PLATELET COUNT, AUTOMATED 366 10^3/uL (150-450)
[2025-05-31] MEDS: ASPIRIN 81 MG CHEWABLE TABLET PO ONE (11:34)
[2025-05-31 12:40] LABS: CPK CREATINE PHOSPHOKINASE 82 U/L (46-171)
[2025-05-31 12:44] LABS: CALCIUM LEVEL 9.6 MG/DL (8.5-10.1); CARBON DIOXIDE LEVEL 28 MMOL/L (20-31); CHLORIDE LEVEL 106 MMOL/L (98-107); CK-MB VALUE MASS 1.3 NG/ML (<3.6); CREATININE FOR GFR 0.67 MG/DL (0.70-1.30); GLOMERULAR FILTRATION RATE > 90.0 (>56); MB/CK RELATIVE INDEX 1.58 (< OR =4); POTASSIUM SERUM 3.4 MMOL/L (3.5-5.1); SODIUM LEVEL 144 MMOL/L (136-145)
[2025-05-31 12:47] LABS: CK-MB VALUE MASS 1.7 NG/ML (<3.6)
[2025-05-31 12:52] LABS: CPK CREATINE PHOSPHOKINASE 86.0 U/L (46-171); MB/CK RELATIVE INDEX 1.97 (< OR =4)
[2025-05-31 14:05] VITALS: O2SAT 98
[2025-05-31] MEDS ORDERED: ALBU8.5H INH (14:15)
[2025-05-31] MEDS ORDERED: PRED20TA PO (14:15)
[2025-05-31 14:33] VITALS: BP 118/68; TEMP 98.2; O2SAT 98
== END 2025-05-31 14:38 | disposition home or self-care (01) ==
LOC: M ED 09:51
DX: J20.9 Acute bronchitis, unspecified (principal); B34.1 Enterovirus infection, unspecified; J45.909 Unspecified asthma, uncomplicated; F17.210 Nicotine dependence, cigarettes, uncomplicated; Z88.5 Allergy status to narcotic agent; Z79.51 Long term (current) use of inhaled steroids; Z79.52 Long term (current) use of systemic steroids; Z79.899 Other long term (current) drug therapy; Z79.810 Long term (current) use of selective estrogen receptor modulators (SERMs)

== ENCOUNTER → 2025-09-14 | Outpatient (REF) | payer OTHER ==
[~2025-09-14] MED LIST changes: +ALBU8.5H INH; +PRED20TA PO
== END ==
LOC: M LAB REF 15:53
PROVIDERS: ATTEND Physician Assistant Medical
DX: B34.9 Viral infection, unspecified (principal)